=== PATIENT | female | born 1995 | race Caucasian/White ===

== ENCOUNTER 2017-01-21 04:50 | Emergency (ER) | payer OTHER ==
[~2017-01-21] VITALS: Ht 170.2 cm; Wt 59.6 kg
[2017-01-21 05:04] VITALS: Ht 170.2 cm; Wt 59.6 kg
[2017-01-21] MEDS ORDERED: ONDANSETRON 4 MG INJ IV STA (05:21)
[2017-01-21] MEDS ORDERED: morphine 4 MG/ML VIAL IV STA (05:21)
[2017-01-21] MEDS ORDERED: SOD CHLORIDE 0.9% 1,000 ML IV ONE (05:30)
[2017-01-21] MEDS ORDERED: ACETAMINOPHEN 325 MG TAB PO ONE (05:30)
--- NOTE | 2017-01-21 06:08 | RADRPT ---
PROCEDURE: CT Abdomen and pelvis without contrast. CLINICAL INDICATION: Abdominal pain. TECHNIQUE: CT scan of the abdomen and pelvis was performed on a multi-detector high-resolution CT scanner. Contiguous axial images were obtained from the lung bases to the ischial tuberosities wit hout intravenous contrast. Coronal and sagittal reformatted images were also obtained. Images were reviewed on the PACS workstation. One or more of the following dose reduction techniques were used: - Automated exposure control. - Adjustment of the mA and/or kV according to patient size. - Use of iterative reconstruction technique. Exam CTD/vol = 5.15 mGy. Total exam DLP = 304.53 mGy-cm. COMPARISON: None. FINDINGS: Evaluation of the lung bases demonstrates no pleural or parenchymal disease. Abdomen: The liver is normal in size. There is no focal mass or dilatation of the biliary tree. T he gallbladder is not distended. The spleen, pancreas and bilateral adrenal glands are within mackenzie l limits. Bilateral kidneys are normal in size with no contour deforming mass identified. There is no radiopaque renal or ureteral calculus identified. There is no hydronephrosis or hydroureter. T here is no retroperitoneal adenopathy. The abdominal aorta is of normal caliber. There is moderate retained stool within the colon. There is no bowel obstruction or free air. A no rmal appendix is identified. There is no diverticulosis or diverticulitis. There is no ascites. Pelvis: The bladder is unremarkable. The uterus and adnexa are within normal limits. There is tra ce pelvic free fluid. There is no significant pelvic adenopathy. Evaluation of the osseous structures demonstrates no suspicious lytic or blastic lesion. IMPRESSION: Moderate retained stool within the colon. Trace pelvic free fluid. Normal appendix. Otherwise no acute abnormality identified within the abdomen and pelvis. .August Lizama MD, MD Date Time Electronically viewed and signed by .August Lizama MD, MD on 01/21/2017 06:08 .T/
[2017-01-21] MEDS ORDERED: ACET500C5 PO (06:12)
[2017-01-21] MEDS ORDERED: CEPH-443 PO (06:12)
--- NOTE | 2017-01-21 06:15 | ERD ---
ER Documentation Chief Complaint Chief Complaint mid abdominal pain accompanied by fever x3 days. no N/V HPI 21-year-old female comes in with mid abdominal pain that started over the last 3 days with fever. She describes pain in the mid abdomen, radiates all over, is achy, moderate pain. She denies nausea, vomiting, diarrhea. ROS All systems reviewed and are negative except as per history of present illness. Medications Home Meds Active Scripts Acetaminophen* (Tylophen*) 500 Mg Capsule, 1 CAP PO Q6H Y for PAIN AND OR ELEVATED TEMP, #20 CAP Prov:LIANNA WHITMORE PA-C 01/21/17 Cephalexin* (Keflex*) 500 Mg Capsule, 500 MG PO TID for 10 Days, CAP Prov:LIANNA WHITMORE PA-C 01/21/17 Allergies Allergies: Coded Allergies: No Known Drug Allergies (Verified Allergy, Unknown, 01/21/17) PMhx/Soc Medical and Surgical Hx: pt denies Medical Hx, pt denies Surgical Hx Hx Alcohol Use: No Hx Substance Use: No Hx Tobacco Use: No Smoking Status: Never smoker Physical Exam Vitals Vital Signs Date Time Temp Pulse Resp B/P Pulse Ox O2 Delivery O2 Flow Rate FiO2 01/21/17 05:04 100.5 110 20 117/75 99 Physical Exam General: Well-developed, well-nourished. The patient appears in no acute distress. HEENT: Head is normocephalic, atraumatic. No scleral icterus. Neck: Supple. Nontender. Lungs: Clear to auscultation. Normal air movement. Heart: Regular rate and rhythm. S1 and S2 are normal. No murmurs, gallops, or rubs. Abdomen: Soft, diffuse abdominal tenderness nondistended. Bowel sounds are normoactive. Extremities: No clubbing or cyanosis. Normal pulses. Moving extremities x 4. No weakness. Neurologic: Alert and oriented 3. No focal deficits. Skin: Normal turgor. No rash or lesions. Results 24 hrs Laboratory Tests Test 01/21/17 05:30 Urine Color STRAW Urine Clarity SLIGHTLY CLOUDY Urine pH 6.0 Urine Specific [place] 1.004 Urine Ketones NEGATIVEmg/dL Urine Nitrite NEGATIVEmg/dL Urine Bilirubin NEGATIVEmg/dL Urine Urobilinogen NEGATIVEmg/dL Urine Leukocyte Esterase 3+Anna/ul Urine Microscopic RBC 5/HPF Urine Microscopic WBC 31/HPF Urine Squamous Epithelial Cells FEW/HPF Urine Bacteria FEW/HPF Urine Hemoglobin 1+mg/dL Urine Glucose NEGATIVEmg/dL Urine Total Protein NEGATIVEmg/dl Current Medications Medications (Trade) Dose Ordered Sig/Dolores Route PRN Reason Start Time Stop Time Status Last Admin Dose Admin Acetaminophen (Tylenol Tab) 650 mg ONCE ONCE PO 01/21/17 05:30 01/21/17 05:31 DC 01/21/17 05:41 Morphine Sulfate (morphine) 4 mg ONCE STAT IV 01/21/17 05:21 01/21/17 05:23 DC 01/21/17 05:58 Ondansetron HCl 4 mg 4 mg ONCE STAT IV 01/21/17 05:21 01/21/17 05:23 DC 01/21/17 05:58 Sodium Chloride 1,000 ml @ 1,000 mls/hr Q1H ONCE IV 01/21/17 05:30 01/21/17 06:29 01/21/17 05:58 Ceftriaxone Sodium (Rocephin) 50 ml @ 100 mls/hr ONCE ONCE IVPB 01/21/17 06:30 01/21/17 06:59 DIAGNOSTIC IMAGING REPORT Patient: FANNY RM : 1995 Age: 21 Sex: F MR #: [id number] DOS: 01/21/17520 Ordering MD: LIANNA WHITMORE PA-C Location: E Room/Bed: PROCEDURE: CT Abdomen and pelvis without contrast. CLINICAL INDICATION: Abdominal pain. TECHNIQUE: CT scan of the abdomen and pelvis was performed on a multi- detector high-resolution CT scanner. Contiguous axial images were obtained from the lung bases to the ischial tuberosities without intravenous contrast. Coronal and sagittal reformatted images were also obtained. Images were reviewed on the PACS workstation. One or more of the following dose reduction techniques were used: - Automated exposure control. - Adjustment of the mA and/or kV according to patient size. - Use of iterative reconstruction technique. Exam CTD/vol = 5.15 mGy. Total exam DLP = 304.53 mGy-cm. COMPARISON: None. FINDINGS: Evaluation of the lung bases demonstrates no pleural or parenchymal disease. Abdomen: The liver is normal in size. There is no focal mass or dilatation of the biliary tree. The gallbladder is not distended. The spleen, pancreas and bilateral adrenal glands are within normal limits. Bilateral kidneys are normal in size with no contour deforming mass identified. There is no radiopaque renal or ureteral calculus identified. There is no hydronephrosis or hydroureter. There is no retroperitoneal adenopathy. The abdominal aorta is of normal caliber. There is moderate retained stool within the colon. There is no bowel obstruction or free air. A normal appendix is identified. There is no diverticulosis or diverticulitis. There is no ascites. Pelvis: The bladder is unremarkable. The uterus and adnexa are within normal limits. There is trace pelvic free fluid. There is no significant pelvic adenopathy. Evaluation of the osseous structures demonstrates no suspicious lytic or blastic lesion. IMPRESSION: Moderate retained stool within the colon. Trace pelvic free fluid. Normal appendix. Otherwise no acute abnormality identified within the abdomen and pelvis. .August Lizama MD, MD Date Time Electronically viewed and signed by .August Lizama MD, MD on 01/21/2017 06:08 .T/ CC: LIANNA WHITMORE PA-C Procedures/MDM Course: Patient had an IV line associate, blood and urine were obtained. She was given fluid bolus normal saline with Tylenol. She was given morphine 4 mg and Zofran [address] was negative for acute appendicitis, there is evidence moderate retained stool, urine analysis shows multiple white blood cells consistent with a UTI and she was given Rocephin intravenously. Medical decision makin-year-old female presents with history of fever, abdominal pain and evidence of urinary tract infection. Patient CT is negative for acute appendicitis. The patient will be discharged home with oral antibiotics, advised to continue Tylenol ibuprofen. She is to return for any worsening or new symptoms. Departure Diagnosis: Primary Impression: UTI (urinary tract infection) Condition: Good Patient Instructions: Understanding Urinary Tract Infections (UTIs) LIANNA WHITMORE PA-C Jan 21, 2017 06:15
[2017-01-21] MEDS ORDERED: CEFTRIAXONE 1 GM/50 ML (PMX) 50 ML IVPB ONE (06:30)
[2017-01-21] MEDS ORDERED: KETOROLAC 30 MG INJ IV STA (07:05)
== END 2017-01-21 07:21 | disposition home or self-care (01) ==
LOC: FTE 04:50
DX: N39.0 Urinary tract infection, site not specified (principal)
CPT/HCPCS: 36415; 74176; 80053; 81001; 83690; 85025; 87040; 96374; 96375; J0696; J1885; J2270; J2405; J7030; Z7502; Z7610

== ENCOUNTER 2018-06-07 10:49 | Emergency (ER) | payer OTHER ==
[~2018-06-07] VITALS: Ht 157.5 cm; Wt 60.6 kg
[~2018-06-07 10:49] MED LIST: ACET500C5 PO; CEPH-443 PO
[2018-06-07 11:17] VITALS: BP 125/79; PULSE 111; RESP 20; Ht 157.5 cm; Wt 60.6 kg
[2018-06-07] MEDS ORDERED: KETOROLAC 15 MG INJ IV STA (12:15)
[2018-06-07] MEDS ORDERED: SOD CHLORIDE 0.9% 1,000 ML IV STA (12:15)
--- NOTE | 2018-06-07 12:21 | ERD ---
ER Documentation Chief Complaint Chief Complaint Complains of fever, cough and chest wall pain x 2 days HPI 23-year-old woman complains of cough, fever, chest wall pain with cough, sore throat, body aches times 2 days. She denies abdominal pain, no vomiting or diarrhea, no rash, no headache or blurry vision. ROS All systems reviewed and are negative except as per history of present illness. Medications Home Meds Active Scripts Ondansetron Hcl* (Zofran*) 4 Mg Tablet, 4 MG PO Q8H PRN for NAUSEA AND/OR VOMITING, #12 TAB Prov:KIERRA GOMEZ MD 06/07/18 Ibuprofen* (Motrin*) 600 Mg Tab, 600 MG PO Q8 PRN for PAIN AND/OR INFLAMMATION, #30 TAB Prov:KIERRA GOMEZ MD 06/07/18 Cephalexin* (Keflex*) 500 Mg Capsule, 500 MG PO QID for 5 Days, CAP Prov:KIERRA GOMEZ MD 06/07/18 Acetaminophen* (Tylophen*) 500 Mg Capsule, 1 CAP PO Q6H PRN for PAIN AND OR ELEVATED TEMP, #20 CAP Prov:LIANNA WHITMORE PA-C 01/21/17 Cephalexin* (Keflex*) 500 Mg Capsule, 500 MG PO TID for 10 Days, CAP Prov:LIANNA WHITMORE PA-C 01/21/17 Allergies Allergies: Coded Allergies: No Known Drug Allergies (Verified Allergy, Unknown, 06/07/18) PMhx/Soc Hx Alcohol Use: No Hx Substance Use: No Hx Tobacco Use: No FmHx Family History: No diabetes Physical Exam Vitals Vital Signs Date Temp Pulse Resp B/P (MAP) Pulse Ox O2 O2 Flow FiO2 Time Delivery Rate 06/07/18 100.4 14:05 06/07/18 102.0 111 20 125/79 98 11:17 (94) Physical Exam GENERAL: Well-developed, well-nourished, febrile HEENT: Moist mucous membranes, pink conjunctiva, nasal congestion, no cervical spine tenderness or step-off deformities, no goiter, no jaundice or icterus, extraocular movements intact without pain. No submandibular induration, and no pharyngeal erythema NEURO: Alert and oriented 3, cranial nerves II through XII intact bilaterally, pupils equal round reactive to light, no focal deficits or facial asymmetry, sensation intact distally Strength 5/5 in upper and lower extremities bilaterally CARDIAC: Tachycardic and regular, no murmurs rubs or gallops LUNGS: Clear bilaterally no wheezing crackles or stridor ABDOMEN: Soft nontender, no guarding, no rigidity, no rebound, no psoas sign no obturator sign. Normoactive bowel sounds SKIN: Warm and dry to touch, no abrasions, contusions, or hematomas, no lacerations, no ecchymosis, no target lesions, and without ulcers EXTREMITIES: No clubbing cyanosis or edema, calves are bilaterally symmetrical, no Homans sign, no popliteal cord sign. Distal pulses equal and bilateral PSYCH: Normal affect without agitation or irritability Result Diagram: 06/07/18 1237 06/07/18 1237 Results 24 hrs Laboratory Tests Test 06/07/18 12:37 06/07/18 12:45 White Blood Count 4.7 10^3/ul Red Blood Count 4.48 10^6/ul Hemoglobin 12.7 g/dl Hematocrit 39.8 % Mean Corpuscular Volume 88.8 fl Mean Corpuscular Hemoglobin 28.3 pg Mean Corpuscular Hemoglobin Concent 31.9 g/dl Red Cell Distribution Width 12.4 % Platelet Count 199 10^3/UL Mean Platelet Volume 10.3 fl Immature Granulocytes % 0.200 % Neutrophils % 66.6 % Lymphocytes % 21.5 % Monocytes % 10.4 % Eosinophils % 1.1 % Basophils % 0.2 % Nucleated Red Blood Cells % 0.0 /100WBC Immature Granulocytes # 0.010 10^3/ul Neutrophils # 3.1 10^3/ul Lymphocytes # 1.0 10^3/ul Monocytes # 0.5 10^3/ul Eosinophils # 0.1 10^3/ul Basophils # 0.0 10^3/ul Nucleated Red Blood Cells # 0.0 10^3/ul Urine Color STRAW Urine Clarity CLEAR Urine pH 8.0 Urine Specific [place] 1.005 Urine Ketones NEGATIVE mg/dL Urine Nitrite NEGATIVE mg/dL Urine Bilirubin NEGATIVE mg/dL Urine Urobilinogen NEGATIVE mg/dL Urine Leukocyte Esterase 2+ Anna/ul Urine Microscopic RBC 3 /HPF Urine Microscopic WBC 14 /HPF Urine Squamous Epithelial Cells FEW /HPF Urine Bacteria FEW /HPF Urine Hemoglobin 2+ mg/dL Urine Glucose NEGATIVE mg/dL Urine Total Protein NEGATIVE mg/dl Sodium Level 143 mmol/L Potassium Level 4.1 mmol/L Chloride Level 102 mmol/L Carbon Dioxide Level 28 mmol/L Anion Gap 13 Blood Urea Nitrogen 5 mg/dl Creatinine 0.81 mg/dl Est Glomerular Filtrat Rate mL/min > 60 mL/min Glucose Level 96 mg/dl Calcium Level 10.2 mg/dl Total Bilirubin 0.2 mg/dl Direct Bilirubin 0.00 mg/dl Indirect Bilirubin 0.2 mg/dl Aspartate Amino Transf (AST/SGOT) 22 IU/L Alanine Aminotransferase (ALT/SGPT) 6 IU/L Alkaline Phosphatase 53 IU/L Total Protein 9.0 g/dl Albumin 4.9 g/dl Globulin 4.10 g/dl Albumin/Globulin Ratio 1.19 Lipase 48 U/L POC Beta HCG, Qualitative NEGATIVE Current Medications Medications Dose Sig/Dolores Start Time Status Last (Trade) Ordered Route PRN Stop Time Admin Dose Reason Admin Sodium 1,000 ml @ Q1H STAT 06/07/18 DC 06/07/18 Chloride 1,000 mls/hr IV 12:15 12:41 06/07/18 13:14 Ketorolac 15 mg ONCE STAT 06/07/18 DC 06/07/18 Tromethamine IV 12:15 12:56 (Toradol) 06/07/18 12:18 25 mg ONCE ONCE 06/07/18 DC 06/07/18 Diphenhydrami IV 13:30 13:16 ne HCl 06/07/18 13:31 (Benadryl) Ceftriaxone 50 ml @ ONCE ONCE 06/07/18 DC 06/07/18 Sodium 100 mls/hr IVPB 13:30 13:36 06/07/18 13:59 Procedures/MDM IV line was established patient was placed on pvc monitor rhythm strip revealed a sinus tachycardia at 110 bpm with upright P and T waves. Patient was febrile, I do not suspect sepsis. EKG performed, read by me revealed a sinus tachycardia at 103 bpm, normal axis, narrow QRS complex, no concerning ST elevations or depressions noted. I administered 1 L normal saline IV and Toradol 15 mg IV x1 While in the ED patient developed a mild pruritic maculopapular rash to the inner thighs bilaterally, I suspect it is a viral exanthem given her symptoms. I administered diphenhydramine 25 mg IV x1 for itching. One AP view of the chest performed, read by me reveals no acute infiltrates, normal mediastinum, sharp costophrenic and cardiac borders, no air under the diaphragm. Otherwise unremarkable chest x-ray. CBC and electrolytes are normal, liver function tests were normal, test negative, urinalysis was positive for infection. Influenza AB swabs were negative. I administered ceftriaxone 1 g IV for acute UTI. Differential diagnoses considered, included but not limited to acute coronary syndrome, pulmonary embolism, aortic dissection, abdominal aortic aneurysm, sepsis, stroke, meningitis, encephalitis, pneumonia, appendicitis, cholecystitis, bowel obstruction, pyelonephritis, nephrolithiasis, cystitis, as well as metabolic, hematologic, and electrolyte abnormalities. As well as abscess, cellulitis, fractures, and dislocations. Patient feels much better at this time, and vital signs are normal, symptoms have improved. I did give strict instructions to return to the ED if symptoms continue or worsen, patient will otherwise follow-up with primary care physician. Patient understood instructions and agreed to plan. Disclaimer: Inadvertent spelling and grammatical errors are likely due to EHR/dictation software use and do not reflect on the overall quality of patient care. Also, please note that the electronic time recorded on this note does not necessarily reflect the actual time of the patient encounter. Departure Diagnosis: Primary Impression: Acute URI Additional Impression: Acute UTI Condition: KIERRA Ochoa MD Jun 07, 2018 12:20
[2018-06-07] MEDS ORDERED: DIPHENHYDRAMINE 50 MG INJ IV ONE (13:30)
[2018-06-07] MEDS ORDERED: CEFTRIAXONE 1 GM/50 ML (PMX) 50 ML IVPB ONE (13:30)
[2018-06-07] MEDS ORDERED: ONDA4TAB8 PO (13:57)
[2018-06-07] MEDS ORDERED: CEPH-443 PO (13:57)
[2018-06-07] MEDS ORDERED: IBUP-1542 PO (13:57)
== END 2018-06-07 14:12 | disposition home or self-care (01) ==
LOC: FTE 10:49
DX: J06.9 Acute upper respiratory infection, unspecified (principal); N39.0 Urinary tract infection, site not specified; R07.89 Other chest pain
CPT/HCPCS: 36415; 71045; 80053; 81001; 81025; 83690; 85025; 87400; 93005; 96361; 96365; 96375; J0696; J1200; J1885; J7030; Z7502